=== PATIENT | female | born 1940 | race Caucasian/White ===

== ENCOUNTER 2016-04-23 00:43 | Day surgery (SDC) | payer MEDICARE ==
[2016-04-23] VITALS (8 sets, daily range): BP systolic 138–168; BP diastolic 57–117; PULSE 64–78; RESP 14–22; O2SAT 98–99
[~2016-04-23] VITALS: Ht 167.6 cm; Wt 69.0 kg
[~2016-04-23 00:43] MED LIST: ACYC400T2 PO; ASCO100089 PO; ASPI325T32 PO; CALC-952 PO; CHOL5000 PO; DICY10CA56 PO; ESTR1TAB24 PO; FLAX100038 PO; FLUT9.9S NS; HYDR-4003 PO; LACT1CAP64 PO; METO25TA6 PO; MULT1CAP33 PO; Magnesium; OMEG1CAP55 PO; PROM25TA14 PO; SELE200T11 PO; VIT1TABL83 PO; VITA-251 PO
--- NOTE | 2016-04-23 09:30 | NUR ---
ADMISSION NOTE FEMALE PT ADMITTED FOR LOOP RECORDER INSERTION. DISCUSSED PLAN OF CARE WITH PT. SEE ADMIT AND FLOW SHEET
[2016-04-23] MEDS ORDERED: 0.9% Sodium Chloride 1,000 ML ONE (11:18)
[2016-04-23] MEDS ORDERED: Bupivacaine-MPF 0.5% 30 mL Inj ONE (13:28)
[2016-04-23] MEDS ORDERED: fentaNYL-PF 50 mCg/mL 2 mL Inj ONE (13:35)
--- NOTE | 2016-04-23 14:00 | NUR ---
POST PROCEDURE NOTE RETURNED FROM ARCHITECTURAL REPRESENTATIVE. PRESSURE HELD. SLIGHT DRAINAGE. INSTRUCTIONS GIVEN TO PT RE DEVICE
--- NOTE | 2016-04-23 16:10 | NUR ---
DISCHARGE NOTE UP IN ROOM, SITE STABLE. NO FURTHER CHANGES TO SITE. INSTRUCTIONS GIVEN. HOME WITH FAMILY
--- NOTE | 2016-04-24 07:51 | OP ---
[address] [address] OPERATIVE REPORT PATIENT: MITRA HENRIQUEZ : 1940 MR#: [id number] ADMIT: 04/23/2016 JOB ID: [id number] DATE OF SURGERY: 04/23/2016. PREOPERATIVE DIAGNOSIS(ES): Possible atrial flutter. POSTOPERATIVE DIAGNOSIS(ES): Possible atrial flutter. SURGEON: Humberto Knutson MD. PATIENT PROFILE: The patient is a 75 years old woman with a history of stroke. Her event monitor showed possible atrial flutter. The patient does not want to commit herself to chronic anticoagulation. A loop recorder was performed to identify whether indeed she does have atrial flutter or atrial fibrillation. PROCEDURE: Injectable loop recorder implantation. COMPLICATION: None. IMPLANTED DEVICE: [employer] Reveal LINQ, model LNQ11, serial number [id number]. DESCRIPTION OF PROCEDURE: The left parasternal area was prepped and draped under standard sterile technique. The left parasternal region was infiltrated with a 50/50% mixture of lidocaine and Marcaine. The skin incision was made with the provided scalpel. An injectable loop recorder was then implanted into the subcutaneous tissue under the provided applicator. Initially, it was placed in the left parasternal region. However, the sensitivity is inadequate. The loop recorder was retrieved and was repositioned toward the apex. After hemostasis was achieved, the skin was approximated with Dermabond. The patient tolerated the procedure well and was transferred to her room in stable condition. The device was set to detect bradycardia below 30 beats per minute, tachycardia above 154 beats per minute, and pause over 3 seconds. The sensitivity threshold is 0.035 mV. MTDD
== END 2016-04-23 23:59 | disposition home or self-care (01) ==
LOC: SOUO 00:43
PROVIDERS: ATTEND Internal Medicine Interventional Cardiology
DX: I49.9 Cardiac arrhythmia, unspecified (principal); Z86.73 Personal history of transient ischemic attack (TIA), and cerebral infarction without residual deficits; Z79.82 Long term (current) use of aspirin; I48.0 Paroxysmal atrial fibrillation; I10 Essential (primary) hypertension
CPT/HCPCS: 33282; 93005; 99152; C1764; J2060; J3010